=== PATIENT | male | born 1990 | race Caucasian/White ===

== ENCOUNTER 2016-10-27 11:37 | Emergency (ER) | payer BC ==
--- NOTE | 2016-10-27 11:50 | ER Document Report ---
ED Medical Screen (RME) - General Stated Complaint: FLU LIKE SYMPTOMS Notes: with sore throat that has progressed to body aches, chills and fever. sick contacts at work I have greeted and performed a rapid initial assessment of this patient. A comprehensive ED assessment and evaluation of the patient, analysis of test results and completion of the medical decision making process will be conducted by additional ED providers. - Related Data Allergies/Adverse Reactions: No Known Allergies Allergy (Verified 04/27/14 01:27) Past Medical History Past Surgical History: Reports: Hx Appendectomy - Immunizations Hx Diphtheria, Pertussis, Tetanus Vaccination: Yes Physical Exam - Vital signs Vitals: Temp Pulse Resp BP Pulse Ox 101.2 F H 111 H 16 133/76 H 97 10/27/16 11:41 10/27/16 11:41 10/27/16 11:41 10/27/16 11:41 10/27/16 11:41 Course - Vital Signs Vital signs: Temp Pulse Resp BP Pulse Ox 101.2 F H 111 H 16 133/76 H 97 10/27/16 11:41 10/27/16 11:41 10/27/16 11:41 10/27/16 11:41 10/27/16 11:41
[2016-10-27] MEDS ORDERED: IBUPROFEN 800 MG TABLET PO ONE (11:51)
--- NOTE | 2016-10-27 12:22 | ER Document Report ---
HPI - HPI Pain Level: Denies Context: 26 yo male c/o flu like symptoms x 4 days. sore throat, body aches, vomiting, fever Associated Symptoms: Body/muscle aches, Chills, Nonproductive cough, Fever, Headache, Nausea, Vomiting, Sore throat Exacerbated by: Denies Relieved by: Denies Similar symptoms previously: Yes Recently seen / treated by doctor: No - ROS Systems Reviewed and Negative: Yes All other systems reviewed and negative - CARDIOVASCULAR Cardiovascular: REPORTS: Chest pain - when coughing - DERM Skin Color: Normal Past Medical History - General Information source: Patient - Social History Smoking Status: Current Every Day Smoker Chew tobacco use (# tins/day): No Frequency of alcohol use: None Drug Abuse: None Lives with: Family Family History: Reviewed & Not Pertinent Patient has suicidal ideation: No Patient has homicidal ideation: No - Medical History Medical History: Negative Renal/ Medical History: Denies: Hx Peritoneal Dialysis Past Surgical History: Reports: Hx Appendectomy - Immunizations Hx Diphtheria, Pertussis, Tetanus Vaccination: Yes Vertical Provider Document - CONSTITUTIONAL Agree With Documented VS: Yes - INFECTION CONTROL TRAVEL OUTSIDE OF THE [place] IN LAST 30 DAYS: No - HEENT HEENT: Atraumatic, PERRLA, Pharyngeal Erythema. negative: Tympanic Membrane Red - TMs dull bilat - NECK Neck: Normal Inspection, Supple - RESPIRATORY Respiratory: Breath Sounds Normal, No Respiratory Distress O2 Sat by Pulse Oximetry: 97 - CARDIOVASCULAR Cardiovascular: Regular Rate, Regular Rhythm - GI/ABDOMEN Gastrointestinal: Abdomen Soft - BACK Back: Normal Inspection - NEURO Level of Consciousness: Awake, Alert, Appropriate - DERM Integumentary: Warm, Dry, No Rash Course - Re-evaluation Re-evalutation: 10/27/16 12:45 flu and strep negative. H&P c/w viral syndrome. pt stable for discharge and follow up with primary care. pt agreeable with plan - Vital Signs Vital signs: Temp Pulse Resp BP Pulse Ox 101.2 F H 111 H 16 133/76 H 97 10/27/16 11:41 10/27/16 11:41 10/27/16 11:41 10/27/16 11:41 10/27/16 11:41 Discharge - Discharge Clinical Impression: Viral syndrome Condition: Stable Disposition: HOME, SELF-CARE Instructions: Viral Syndrome ([facility]), Antinausea Medication ([facility]) Additional Instructions: your flu test and rapid strep were negative rest and hydrate Tylenol as needed for fever control bland diet as tolerated take anti nausea med as needed follow up with your primary care if symptoms persist Prescriptions: Ondansetron HCl [Zofran 8 mg Tablet] 8 mg PO Q8HP PRN #10 tablet PRN Reason:
[2016-10-27 13:10] VITALS: BP 124/61
== END 2016-10-27 13:01 | disposition home or self-care (01) ==
LOC: ER 11:37
DX: B34.9 Viral infection, unspecified (principal); J02.9 Acute pharyngitis, unspecified; R52 Pain, unspecified; R11.10 Vomiting, unspecified; R50.9 Fever, unspecified; F17.200 Nicotine dependence, unspecified, uncomplicated
CPT/HCPCS: 87070; 87804; 87880; 99283

== ENCOUNTER → 2019-05-03 | Outpatient (CLI) | payer BC ==
--- NOTE | 2019-05-03 22:44 | XCELERA REPORT ---
[address] [address] Transthoracic Echocardiogram Report Name: ANETA DRAKE Age: 29 yrs Gender: Male : 1990 Patient Status: Outpatient Patient Location: Study Date: 05/03/2019 01:07 PM Height: 69 in Weight: 260 lb BSA: 2.3 m2 Reason For Study: HTN Ordering Physician: JOHANNE THOMAS Performed By: So Mayorga Interpretation Summary The left ventricular ejection fraction is within normal limits. The right ventricular systolic function is normal. There is a trace to mild amount of mitral regurgitation There is no mitral valve stenosis. There is no aortic valve stenosis No aortic regurgitation is present. There is no tricuspid stenosis. There is a trace or physiologic amount of tricuspid regurgitation Tricuspid regurgitation jet envelope not well defined to measure RV systolic pressure accurately. There is no pericardial effusion. MMode/2D Measurements & Calculations RVDd: 3.5 cm LVIDd: 4.9 cm FS: 37.5 % Ao root diam: 2.7 cm IVSd: 0.79 cm LVIDs: 3.1 cm EDV(Teich): 114.0 ml LVPWd: 0.95 cm ESV(Teich): 37.3 ml Ao root area: 5.9 cm2 EF(Teich): 67.3 % Doppler Measurements & Calculations MV E max dinorah: MV dec slope: Ao V2 max: LV V1 max P.2 cm/sec 333.8 cm/sec2 132.9 cm/sec 5.7 mmHg MV A max dinorah: MV dec time: 0.27 sec Ao max PG: LV V1 max: 45.0 cm/sec 7.1 mmHg 119.8 cm/sec MV E/A: 2.0 PA V2 max: TR max dinorah: 99.8 cm/sec 129.9 cm/sec PA max P.0 mmHgTR max P.8 mmHg Left Ventricle The left ventricle is grossly normal size. There is normal left ventricular wall thickness. The left ventricular ejection fraction is within normal limits. Doppler measurements suggest normal left ventricular diastolic function. No regional wall motion abnormalities noted. Right Ventricle The right ventricle is grossly normal size. There is normal right ventricular wall thickness. The right ventricular systolic function is normal. Atria The right atrium is normal in size. The left atrial size is normal. Interarterial septum not well visualized and not well dopplered. Cannot comment on ASD/PFO presence. Mitral Valve The mitral valve is grossly normal. There is no mitral valve stenosis. There is a trace to mild amount of mitral regurgitation. Aortic Valve The aortic valve is grossly normal. There is no aortic valve stenosis. No aortic regurgitation is present. Tricuspid Valve The tricuspid valve is not well visualized, but is grossly normal. There is no tricuspid stenosis. There is a trace or physiologic amount of tricuspid regurgitation. Tricuspid regurgitation jet envelope not well defined to measure RV systolic pressure accurately. Pulmonic Valve The pulmonic valve is not well visualized. Great Vessels The aortic root is not well visualized. The inferior vena cava was not well visualized. Effusions There is no pericardial effusion. : JOHANNE THOMAS Shyamal
== END ==
LOC: SP 12:58
PROVIDERS: ATTEND Internal Medicine Pulmonary Disease
DX: I27.0 Primary pulmonary hypertension (principal)
CPT/HCPCS: 93306

== ENCOUNTER → 2019-06-30 | Outpatient (CLI) | payer BC | LOC: OD 14:14 | PROVIDERS: ATTEND Internal Medicine Pulmonary Disease | DX: I27.0 Primary pulmonary hypertension (principal) | CPT/HCPCS: 36415 ==